=== PATIENT | female | born 1955 | race Two or more races ===

== ENCOUNTER → 2017-08-15 | Emergency (ER) | payer OTHER ==
[~2017-08-15] VITALS: Ht 165.1 cm; Wt 70.3 kg
[~2017-08-15] MED LIST: ASA81 MG; FLEXERIL10 MG PO; LIPITOR40 MG; NEURONTIN300 MG; NEXIUM20 MG/PACK; PREDNISONE5 MG/DOSE- PO; TENORMIN25 MG; TRAMADOL HCL50 MG PO
== END | disposition home or self-care (01) ==
LOC: ER 10:51
DX: N95.0 Postmenopausal bleeding (principal)

== ENCOUNTER 2017-09-10 11:00 | Outpatient (CLI) | payer OTHER | END 2017-09-10 15:01 | disposition home or self-care (01) | LOC: TOM 11:00 | DX: C54.1 Malignant neoplasm of endometrium (principal) | CPT/HCPCS: 74177; Q9965 ==

== ENCOUNTER → 2017-10-20 | Outpatient (CLI) | payer OTHER ==
[~2017-10-20] MED LIST changes: +TOPROL XL50 M1 PO
== END | disposition home or self-care (01) ==
LOC: LAB 06:39 → RAD 06:39
DX: I10 Essential (primary) hypertension (principal); E11.9 Type 2 diabetes mellitus without complications; E03.8 Other specified hypothyroidism; E78.2 Mixed hyperlipidemia; D68.8 Other specified coagulation defects; J44.0 Chronic obstructive pulmonary disease with (acute) lower respiratory infection

== ENCOUNTER 2017-11-25 12:45 | Emergency (ER) | payer OTHER ==
[~2017-11-25] VITALS: Ht 160 cm; Wt 68.9 kg
[~2017-11-25 12:45] MED LIST changes: -TOPROL XL50 M1 PO
[2017-11-25] MEDS ORDERED: TOPROL XL50 M1 PO (15:56)
== END 2017-11-25 16:32 | disposition home or self-care (01) ==
LOC: ER 12:45 → CPU-OBS 12:52 → ER 12:52
DX: I47.1 Supraventricular tachycardia (principal); R07.89 Other chest pain

== ENCOUNTER → 2017-11-26 11:30 | Outpatient (CLI) | payer OTHER ==
[~2017-11-26 11:30] MED LIST changes: +TOPROL XL50 M1 PO
== END | disposition home or self-care (01) ==
LOC: LAB 11:30
DX: N39.0 Urinary tract infection, site not specified (principal); R82.79 Other abnormal findings on microbiological examination of urine

== ENCOUNTER 2017-12-17 09:16 | Outpatient (CLI) | payer OTHER | END 2017-12-17 09:39 | disposition home or self-care (01) | LOC: RAD 501 09:16 | DX: M25.551 Pain in right hip (principal); M25.552 Pain in left hip ==

== ENCOUNTER 2018-01-19 07:37 | Outpatient (CLI) | payer OTHER | END 2018-01-19 17:00 | disposition home or self-care (01) | LOC: SONOGRAMA 07:37 | DX: C73 Malignant neoplasm of thyroid gland (principal) ==

== ENCOUNTER 2018-01-19 09:18 | Outpatient (CLI) | payer OTHER | END 2018-01-19 09:19 | disposition home or self-care (01) | LOC: LAB 09:18 | DX: I10 Essential (primary) hypertension (principal); E11.9 Type 2 diabetes mellitus without complications; E03.8 Other specified hypothyroidism; E78.2 Mixed hyperlipidemia; N39.0 Urinary tract infection, site not specified ==

== ENCOUNTER 2018-04-02 10:27 | Outpatient (CLI) | payer OTHER | END 2018-04-02 10:39 | disposition home or self-care (01) | LOC: RAD 501 10:27 | DX: M25.572 Pain in left ankle and joints of left foot (principal) ==

== ENCOUNTER 2018-04-16 13:41 | Outpatient (CLI) | payer OTHER | END 2018-04-16 13:51 | disposition home or self-care (01) | LOC: LAB 13:41 | DX: C54.1 Malignant neoplasm of endometrium (principal); C73 Malignant neoplasm of thyroid gland; D51.3 Other dietary vitamin B12 deficiency anemia; D50.8 Other iron deficiency anemias; K90.89 Other intestinal malabsorption; E53.9 Vitamin B deficiency, unspecified; E89.0 Postprocedural hypothyroidism; E78.2 Mixed hyperlipidemia; I10 Essential (primary) hypertension; R97.1 Elevated cancer antigen 125 [CA 125]; R97.0 Elevated carcinoembryonic antigen [CEA]; R97.8 Other abnormal tumor markers ==

== ENCOUNTER 2018-05-11 14:49 | Outpatient (CLI) | payer OTHER | END 2018-05-11 15:00 | disposition home or self-care (01) | LOC: LAB 14:49 | DX: C54.1 Malignant neoplasm of endometrium (principal); C73 Malignant neoplasm of thyroid gland; D51.3 Other dietary vitamin B12 deficiency anemia; D50.8 Other iron deficiency anemias; K90.89 Other intestinal malabsorption; E89.0 Postprocedural hypothyroidism; E78.2 Mixed hyperlipidemia; I10 Essential (primary) hypertension; R97.1 Elevated cancer antigen 125 [CA 125]; R97.0 Elevated carcinoembryonic antigen [CEA]; R97.8 Other abnormal tumor markers; C56.9 Malignant neoplasm of unspecified ovary ==

== ENCOUNTER 2018-06-03 13:00 | Inpatient (IN) | payer OTHER ==
[~2018-06-03] VITALS: Ht 165.1 cm; Wt 73.5 kg
[2018-06-05] MEDS ORDERED: DILTIAZEM HCL30 MG PO (10:34)
[2018-06-05] MEDS ORDERED: LEVOTHYROXINE112 MCG PO (10:34)
[2018-06-05] MEDS ORDERED: ELIQUIS5 MG PO (10:35)
== END 2018-06-05 12:19 | disposition home or self-care (01) | DRG 310 ==
LOC: ER 13:00 → SEC-K 18:38 → MEDI 19:21 → MEDJ 19:21
PROC: 4A12X4Z Monitoring of Cardiac Electrical Activity, External Approach (ICD-10-PCS; principal; 2018-06-03)
PROC: 4A033R1 Measurement of Arterial Saturation, Peripheral, Percutaneous Approach (ICD-10-PCS; 2018-06-03)
PROC: B246ZZZ Ultrasonography of Right and Left Heart (ICD-10-PCS; 2018-06-04)
DX: I48.0 Paroxysmal atrial fibrillation (principal); I47.1 Supraventricular tachycardia; E03.8 Other specified hypothyroidism; I11.9 Hypertensive heart disease without heart failure

== ENCOUNTER 2018-06-22 07:17 | Outpatient (CLI) | payer OTHER ==
[~2018-06-22 07:17] MED LIST changes: +DILTIAZEM HCL30 MG PO; +ELIQUIS5 MG PO; +LEVOTHYROXINE112 MCG PO
== END 2018-06-22 08:02 | disposition home or self-care (01) ==
LOC: LAB 07:17
DX: E04.0 Nontoxic diffuse goiter (principal); E78.2 Mixed hyperlipidemia; K76.1 Chronic passive congestion of liver; N39.0 Urinary tract infection, site not specified; D53.9 Nutritional anemia, unspecified; I11.0 Hypertensive heart disease with heart failure; E55.9 Vitamin D deficiency, unspecified

== ENCOUNTER 2018-06-22 08:39 | Inpatient (IN) | payer OTHER ==
[~2018-06-22] VITALS: Ht 165.1 cm; Wt 73.0 kg
[2018-07-22] MEDS ORDERED: SYNTHROID88 MCG PO (09:30)
[2018-07-22] MEDS ORDERED: EZETIMIBE10 MG PO (09:30)
[2018-07-22] MEDS ORDERED: INTEGRA CAPSUL1 EACH PO (09:31)
[2018-07-22] MEDS ORDERED: PROBIO PO (09:32)
[2018-07-22] MEDS ORDERED: [UNRECOGNIZED DRUG - OTHER] (09:32)
[2018-07-22] MEDS ORDERED: OSTERA TABLET1 EACH PO (09:32)
[2018-07-22] MEDS ORDERED: FLOVENT DISKUS50 MCG IH (09:33)
[2018-07-22] MEDS ORDERED: DILTI PO (09:33)
[2018-07-23] MEDS ORDERED: CARDIZEM30 MG PO (09:37)
[2018-07-23] MEDS ORDERED: PROBIOTIC1 EAC1 PO (09:38)
== END 2018-07-26 16:18 | disposition home or self-care (01) | DRG 740 ==
LOC: SURH 07-23 05:57 → O/R 07-23 05:57 → OB/GYN 07-23 08:15 → SURH 07-23 13:52
PROVIDERS: ADMIT Obstetrics & Gynecology Gynecologic Oncology
PROC: 0UT20ZZ Resection of Bilateral Ovaries, Open Approach (ICD-10-PCS; 2018-07-23)
PROC: 0UT70ZZ Resection of Bilateral Fallopian Tubes, Open Approach (ICD-10-PCS; principal; 2018-07-23 11:15)
DX: C54.1 Malignant neoplasm of endometrium (principal); I47.1 Supraventricular tachycardia; C79.89 Secondary malignant neoplasm of other specified sites; E03.9 Hypothyroidism, unspecified; I11.9 Hypertensive heart disease without heart failure; N95.0 Postmenopausal bleeding

== ENCOUNTER 2018-07-15 07:26 | Outpatient (CLI) | payer OTHER | END 2018-07-15 07:37 | disposition home or self-care (01) | LOC: LAB 07:26 | DX: G54.1 Lumbosacral plexus disorders (principal); R97.1 Elevated cancer antigen 125 [CA 125]; Z01.818 Encounter for other preprocedural examination; D64.89 Other specified anemias; R79.89 Other specified abnormal findings of blood chemistry; N39.0 Urinary tract infection, site not specified; Z01.810 Encounter for preprocedural cardiovascular examination; C73 Malignant neoplasm of thyroid gland; D51.3 Other dietary vitamin B12 deficiency anemia; D50.8 Other iron deficiency anemias; K90.89 Other intestinal malabsorption; E53.8 Deficiency of other specified B group vitamins; E89.0 Postprocedural hypothyroidism; E78.2 Mixed hyperlipidemia; I10 Essential (primary) hypertension; R97.0 Elevated carcinoembryonic antigen [CEA]; R97.8 Other abnormal tumor markers ==

== ENCOUNTER 2018-07-28 08:51 | Emergency (ER) | payer OTHER ==
[~2018-07-28] VITALS: Ht 165.1 cm; Wt 73.0 kg
[~2018-07-28 08:51] MED LIST changes: +CARDIZEM30 MG PO; +DILTI PO; +EZETIMIBE10 MG PO; +FLOVENT DISKUS50 MCG IH; +INTEGRA CAPSUL1 EACH PO; +OSTERA TABLET1 EACH PO; +PROBIO PO; +PROBIOTIC1 EAC1 PO; +SYNTHROID88 MCG PO; +[UNRECOGNIZED DRUG - OTHER]
[2018-07-28] MEDS ORDERED: LOVENOX40 MG/0.4 (09:29)
[2018-07-28] MEDS ORDERED: COLACE100 MG (09:29)
== END 2018-07-28 14:37 | disposition home or self-care (01) ==
LOC: ER 08:51
DX: G89.18 Other acute postprocedural pain (principal); R10.84 Generalized abdominal pain; K29.60 Other gastritis without bleeding

== ENCOUNTER 2018-08-13 18:03 | Emergency (ER) | payer OTHER ==
[~2018-08-13] VITALS: Ht 165.1 cm; Wt 72.6 kg
[~2018-08-13 18:03] MED LIST changes: +COLACE100 MG; +LOVENOX40 MG/0.4
== END 2018-08-14 00:20 | disposition home or self-care (01) ==
LOC: ER 18:03
DX: R00.2 Palpitations (principal)

== ENCOUNTER 2018-08-27 05:44 | Day surgery (SDC) | payer OTHER ==
[~2018-08-27 05:44] MED LIST changes: +GABAPENTIN600 MG PO; +LIPITOR20 MG PO; +METROPOLO PO; +ZETIA10 MG PO
== END 2018-08-27 15:40 | disposition home or self-care (01) ==
LOC: CIR.AMB 05:44
DX: C54.1 Malignant neoplasm of endometrium (principal); C77.5 Secondary and unspecified malignant neoplasm of intrapelvic lymph nodes
CPT/HCPCS: 36561; C1751

== ENCOUNTER 2018-09-16 12:12 | Outpatient (CLI) | payer OTHER | END 2018-09-16 12:25 | disposition home or self-care (01) | LOC: LAB 12:12 | DX: N39.0 Urinary tract infection, site not specified (principal); B99.8 Other infectious disease ==

== ENCOUNTER 2018-10-10 07:38 | Outpatient (CLI) | payer OTHER | END 2018-10-10 07:52 | disposition home or self-care (01) | LOC: LAB 07:38 | DX: C54.1 Malignant neoplasm of endometrium (principal); C78.6 Secondary malignant neoplasm of retroperitoneum and peritoneum; Z80.0 Family history of malignant neoplasm of digestive organs; Z80.3 Family history of malignant neoplasm of breast; C73 Malignant neoplasm of thyroid gland; D51.3 Other dietary vitamin B12 deficiency anemia; D50.8 Other iron deficiency anemias; K90.89 Other intestinal malabsorption; E53.8 Deficiency of other specified B group vitamins; E89.0 Postprocedural hypothyroidism; E78.2 Mixed hyperlipidemia; I10 Essential (primary) hypertension; R97.1 Elevated cancer antigen 125 [CA 125]; R97.0 Elevated carcinoembryonic antigen [CEA]; R97.8 Other abnormal tumor markers ==

== ENCOUNTER 2018-10-14 14:28 | Outpatient (CLI) | payer OTHER | END 2018-10-14 15:36 | disposition home or self-care (01) | LOC: LAB 14:28 | DX: C54.1 Malignant neoplasm of endometrium (principal); Z80.0 Family history of malignant neoplasm of digestive organs; Z80.3 Family history of malignant neoplasm of breast; C78.6 Secondary malignant neoplasm of retroperitoneum and peritoneum; C73 Malignant neoplasm of thyroid gland; D50.8 Other iron deficiency anemias; K90.89 Other intestinal malabsorption; E53.8 Deficiency of other specified B group vitamins; E89.0 Postprocedural hypothyroidism; E78.2 Mixed hyperlipidemia; I10 Essential (primary) hypertension; R97.0 Elevated carcinoembryonic antigen [CEA]; R97.8 Other abnormal tumor markers ==

== ENCOUNTER 2018-10-31 07:57 | Outpatient (CLI) | payer OTHER ==
[~2018-10-31 07:57] MED LIST changes: +B-12500 MCG PO; +INTEGRA F CAPS1 EACH PO; +TENORMIN25 MG PO; +VIT C-ROSE HIP500 MG PO; +VITAMIN D3400 UNI1 PO
== END 2018-10-31 08:04 | disposition home or self-care (01) ==
LOC: LAB 07:57
DX: E04.0 Nontoxic diffuse goiter (principal); C54.1 Malignant neoplasm of endometrium; C78.6 Secondary malignant neoplasm of retroperitoneum and peritoneum; I10 Essential (primary) hypertension

== ENCOUNTER 2018-11-09 07:32 | Outpatient (CLI) | payer OTHER | END 2018-11-09 08:30 | disposition home or self-care (01) | LOC: LAB 07:32 | DX: C54.1 Malignant neoplasm of endometrium (principal) ==

== ENCOUNTER 2018-11-12 07:52 | Outpatient (CLI) | payer OTHER | END 2018-11-12 07:57 | disposition home or self-care (01) | LOC: LAB 07:52 | DX: E78.49 Other hyperlipidemia (principal); C54.1 Malignant neoplasm of endometrium; C78.6 Secondary malignant neoplasm of retroperitoneum and peritoneum ==

== ENCOUNTER 2018-11-23 06:53 | Outpatient (CLI) | payer OTHER | END 2018-11-23 07:29 | disposition home or self-care (01) | LOC: LAB 06:53 | DX: E04.0 Nontoxic diffuse goiter (principal); C73 Malignant neoplasm of thyroid gland; I11.0 Hypertensive heart disease with heart failure ==

== ENCOUNTER 2018-11-23 07:41 | Outpatient (CLI) | payer OTHER | END 2018-11-23 17:00 | disposition home or self-care (01) | LOC: SONOGRAMA 07:41 | DX: C73 Malignant neoplasm of thyroid gland (principal); E89.0 Postprocedural hypothyroidism ==

== ENCOUNTER 2018-11-28 17:13 | Emergency (ER) | payer OTHER ==
[~2018-11-28] VITALS: Ht 165.1 cm; Wt 65.8 kg
[2018-11-28] MEDS ORDERED: METOPROLOL SUCC25 MG (17:30)
[2018-11-28] MEDS ORDERED: SKELAXIN800 MG PO (20:20)
[2018-11-28] MEDS ORDERED: VOLTAREN100 GM TOP (20:20)
== END 2018-11-28 20:47 | disposition home or self-care (01) ==
LOC: ER 17:13
DX: M75.51 Bursitis of right shoulder (principal); M25.511 Pain in right shoulder

== ENCOUNTER 2018-12-03 06:58 | Outpatient (CLI) | payer OTHER ==
[~2018-12-03 06:58] MED LIST changes: +METOPROLOL SUCC25 MG; +SKELAXIN800 MG PO; +VOLTAREN100 GM TOP
== END 2018-12-03 08:06 | disposition home or self-care (01) ==
LOC: LAB 06:58
DX: C54.1 Malignant neoplasm of endometrium (principal)

== ENCOUNTER → 2018-12-10 07:29 | Outpatient (CLI) | payer OTHER | END | disposition home or self-care (01) | LOC: LAB 07:29 | DX: D51.8 Other vitamin B12 deficiency anemias (principal); D50.8 Other iron deficiency anemias ==

== ENCOUNTER 2018-12-16 15:42 | Outpatient (CLI) | payer OTHER | END 2018-12-16 15:49 | disposition home or self-care (01) | LOC: LAB 15:42 | DX: N39.0 Urinary tract infection, site not specified (principal); B96.29 Other Escherichia coli [E. coli] as the cause of diseases classified elsewhere; Z80.0 Family history of malignant neoplasm of digestive organs; Z80.3 Family history of malignant neoplasm of breast; C54.1 Malignant neoplasm of endometrium; C78.6 Secondary malignant neoplasm of retroperitoneum and peritoneum; C73 Malignant neoplasm of thyroid gland; D51.3 Other dietary vitamin B12 deficiency anemia; D50.8 Other iron deficiency anemias; E89.0 Postprocedural hypothyroidism; K90.89 Other intestinal malabsorption; E78.2 Mixed hyperlipidemia; I10 Essential (primary) hypertension; R97.1 Elevated cancer antigen 125 [CA 125]; R97.0 Elevated carcinoembryonic antigen [CEA]; R97.8 Other abnormal tumor markers; D51.8 Other vitamin B12 deficiency anemias ==

== ENCOUNTER → 2018-12-28 07:20 | Outpatient (CLI) | payer OTHER | END | disposition home or self-care (01) | LOC: LAB 07:20 | DX: C73 Malignant neoplasm of thyroid gland (principal); N39.0 Urinary tract infection, site not specified; I10 Essential (primary) hypertension; D50.8 Other iron deficiency anemias; Z80.0 Family history of malignant neoplasm of digestive organs; Z80.3 Family history of malignant neoplasm of breast; C54.1 Malignant neoplasm of endometrium; C78.6 Secondary malignant neoplasm of retroperitoneum and peritoneum; D51.3 Other dietary vitamin B12 deficiency anemia; K90.89 Other intestinal malabsorption; E89.0 Postprocedural hypothyroidism; E78.2 Mixed hyperlipidemia; R97.1 Elevated cancer antigen 125 [CA 125]; R97.0 Elevated carcinoembryonic antigen [CEA]; R97.8 Other abnormal tumor markers; I11.9 Hypertensive heart disease without heart failure ==

== ENCOUNTER 2019-01-04 07:05 | Outpatient (CLI) | payer OTHER | END 2019-01-04 07:10 | disposition home or self-care (01) | LOC: LAB 07:05 | DX: C54.1 Malignant neoplasm of endometrium (principal); C78.6 Secondary malignant neoplasm of retroperitoneum and peritoneum ==

== ENCOUNTER 2019-01-18 07:40 | Outpatient (CLI) | payer OTHER | END 2019-01-18 07:47 | disposition home or self-care (01) | LOC: LAB 07:40 | DX: C73 Malignant neoplasm of thyroid gland (principal); C54.1 Malignant neoplasm of endometrium; C78.6 Secondary malignant neoplasm of retroperitoneum and peritoneum; I11.9 Hypertensive heart disease without heart failure; E78.2 Mixed hyperlipidemia ==

== ENCOUNTER → 2019-02-12 07:29 | Outpatient (CLI) | payer OTHER | END | disposition home or self-care (01) | LOC: LAB 07:29 | DX: D70.1 Agranulocytosis secondary to cancer chemotherapy (principal); D64.81 Anemia due to antineoplastic chemotherapy; C54.1 Malignant neoplasm of endometrium; E04.8 Other specified nontoxic goiter ==

== ENCOUNTER 2019-03-05 08:23 | Outpatient (CLI) | payer OTHER | END 2019-03-05 08:31 | disposition home or self-care (01) | LOC: LAB 08:23 | DX: E04.8 Other specified nontoxic goiter (principal); C78.6 Secondary malignant neoplasm of retroperitoneum and peritoneum; D63.0 Anemia in neoplastic disease; D64.81 Anemia due to antineoplastic chemotherapy ==

== ENCOUNTER 2019-03-22 07:18 | Outpatient (CLI) | payer OTHER | END 2019-03-22 07:24 | disposition home or self-care (01) | LOC: LAB 07:18 | DX: C54.1 Malignant neoplasm of endometrium (principal); Z80.0 Family history of malignant neoplasm of digestive organs; Z80.3 Family history of malignant neoplasm of breast; C78.6 Secondary malignant neoplasm of retroperitoneum and peritoneum; C73 Malignant neoplasm of thyroid gland; D51.3 Other dietary vitamin B12 deficiency anemia; D50.8 Other iron deficiency anemias; K90.89 Other intestinal malabsorption; E89.0 Postprocedural hypothyroidism; E78.2 Mixed hyperlipidemia; I10 Essential (primary) hypertension; R97.1 Elevated cancer antigen 125 [CA 125]; R97.0 Elevated carcinoembryonic antigen [CEA]; R97.8 Other abnormal tumor markers; D63.0 Anemia in neoplastic disease; D70.1 Agranulocytosis secondary to cancer chemotherapy; D64.81 Anemia due to antineoplastic chemotherapy; D51.8 Other vitamin B12 deficiency anemias ==

== ENCOUNTER 2019-04-29 12:21 | Outpatient (CLI) | payer OTHER | END 2019-04-29 12:25 | disposition home or self-care (01) | LOC: LAB 12:21 | DX: C54.1 Malignant neoplasm of endometrium (principal) ==

== ENCOUNTER 2019-05-11 08:44 | Outpatient (CLI) | payer OTHER | END 2019-05-11 09:00 | disposition home or self-care (01) | LOC: LAB 08:44 | DX: D50.8 Other iron deficiency anemias (principal); I10 Essential (primary) hypertension; E78.2 Mixed hyperlipidemia; C78.6 Secondary malignant neoplasm of retroperitoneum and peritoneum; Z80.0 Family history of malignant neoplasm of digestive organs; Z80.3 Family history of malignant neoplasm of breast; D51.3 Other dietary vitamin B12 deficiency anemia; K90.89 Other intestinal malabsorption; R97.1 Elevated cancer antigen 125 [CA 125]; D70.1 Agranulocytosis secondary to cancer chemotherapy; C54.1 Malignant neoplasm of endometrium; C73 Malignant neoplasm of thyroid gland; R97.0 Elevated carcinoembryonic antigen [CEA]; D64.81 Anemia due to antineoplastic chemotherapy; E03.8 Other specified hypothyroidism; R97.8 Other abnormal tumor markers; E06.3 Autoimmune thyroiditis; D63.0 Anemia in neoplastic disease; D51.8 Other vitamin B12 deficiency anemias; A53.9 Syphilis, unspecified ==

== ENCOUNTER → 2019-05-12 | Outpatient (CLI) | payer OTHER | END | disposition home or self-care (01) | LOC: TOM 07:32 | DX: C73 Malignant neoplasm of thyroid gland (principal); K90.89 Other intestinal malabsorption; R97.1 Elevated cancer antigen 125 [CA 125]; D70.1 Agranulocytosis secondary to cancer chemotherapy; D51.3 Other dietary vitamin B12 deficiency anemia; E89.0 Postprocedural hypothyroidism; R97.0 Elevated carcinoembryonic antigen [CEA]; D64.81 Anemia due to antineoplastic chemotherapy; Z80.0 Family history of malignant neoplasm of digestive organs; Z80.3 Family history of malignant neoplasm of breast; D50.8 Other iron deficiency anemias; E78.2 Mixed hyperlipidemia; R97.8 Other abnormal tumor markers; C54.1 Malignant neoplasm of endometrium; I10 Essential (primary) hypertension; D63.0 Anemia in neoplastic disease; C78.6 Secondary malignant neoplasm of retroperitoneum and peritoneum | CPT/HCPCS: 71260; 74177; Q9965 ==

== ENCOUNTER 2019-05-31 07:16 | Outpatient (CLI) | payer OTHER | END 2019-05-31 07:21 | disposition home or self-care (01) | LOC: LAB 07:16 | DX: C54.1 Malignant neoplasm of endometrium (principal); Z80.0 Family history of malignant neoplasm of digestive organs; Z80.3 Family history of malignant neoplasm of breast; C78.6 Secondary malignant neoplasm of retroperitoneum and peritoneum; C73 Malignant neoplasm of thyroid gland; D51.3 Other dietary vitamin B12 deficiency anemia; D50.8 Other iron deficiency anemias; K90.89 Other intestinal malabsorption; E89.0 Postprocedural hypothyroidism; E78.2 Mixed hyperlipidemia; I10 Essential (primary) hypertension; R97.1 Elevated cancer antigen 125 [CA 125]; R97.0 Elevated carcinoembryonic antigen [CEA]; R97.8 Other abnormal tumor markers; D63.0 Anemia in neoplastic disease; D70.1 Agranulocytosis secondary to cancer chemotherapy; D64.81 Anemia due to antineoplastic chemotherapy ==

== ENCOUNTER → 2019-06-02 | Outpatient (CLI) | payer OTHER ==
[~2019-06-02] MED LIST changes: +SYNTHROID100 MCG PO; +TOPROL XL25 M1 PO
== END | disposition home or self-care (01) ==
LOC: EDBD 13:03 → RX STUDY 13:03
DX: C54.1 Malignant neoplasm of endometrium (principal)

== ENCOUNTER 2019-06-14 08:45 | Outpatient (CLI) | payer OTHER ==
[~2019-06-14 08:45] MED LIST changes: -SYNTHROID100 MCG PO; -TOPROL XL25 M1 PO
== END 2019-06-14 08:50 | disposition home or self-care (01) ==
LOC: LAB 08:45
DX: D68.8 Other specified coagulation defects (principal); E11.9 Type 2 diabetes mellitus without complications; N39.0 Urinary tract infection, site not specified; E78.2 Mixed hyperlipidemia; E89.0 Postprocedural hypothyroidism

== ENCOUNTER 2019-06-15 08:03 | Outpatient (CLI) | payer OTHER | END 2019-06-15 08:18 | disposition home or self-care (01) | LOC: RAD 08:03 → TOM 09:00 | DX: C73 Malignant neoplasm of thyroid gland (principal); M87.88 Other osteonecrosis, other site; M25.551 Pain in right hip | CPT/HCPCS: 73722 ==

== ENCOUNTER → 2019-06-17 | Outpatient (CLI) | payer OTHER ==
[~2019-06-17] MED LIST changes: +SYNTHROID100 MCG PO; +TOPROL XL25 M1 PO
== END | disposition home or self-care (01) ==
LOC: EDBD 08:45 → MRI 08:45
DX: M25.551 Pain in right hip (principal)
CPT/HCPCS: 73721; 73722

== ENCOUNTER 2019-06-21 13:15 | Outpatient (CLI) | payer OTHER ==
[~2019-06-21 13:15] MED LIST changes: -SYNTHROID100 MCG PO; -TOPROL XL25 M1 PO
== END 2019-06-21 13:18 | disposition home or self-care (01) ==
LOC: RAD 13:15
DX: M16.11 Unilateral primary osteoarthritis, right hip (principal)

== ENCOUNTER → 2019-06-26 08:43 | Outpatient (CLI) | payer OTHER | END | disposition home or self-care (01) | LOC: LAB 08:43 | DX: C54.1 Malignant neoplasm of endometrium (principal); Z80.0 Family history of malignant neoplasm of digestive organs; Z80.3 Family history of malignant neoplasm of breast; C78.6 Secondary malignant neoplasm of retroperitoneum and peritoneum; C73 Malignant neoplasm of thyroid gland; D51.3 Other dietary vitamin B12 deficiency anemia; D50.8 Other iron deficiency anemias; K90.89 Other intestinal malabsorption; E89.0 Postprocedural hypothyroidism; E78.2 Mixed hyperlipidemia; I10 Essential (primary) hypertension; R97.1 Elevated cancer antigen 125 [CA 125]; R97.0 Elevated carcinoembryonic antigen [CEA]; R97.8 Other abnormal tumor markers; D63.0 Anemia in neoplastic disease; D70.1 Agranulocytosis secondary to cancer chemotherapy; D64.81 Anemia due to antineoplastic chemotherapy; T82.598A Other mechanical complication of other cardiac and vascular devices and implants, initial encounter; Z01.811 Encounter for preprocedural respiratory examination ==

== ENCOUNTER → 2019-06-30 | Outpatient (CLI) | payer OTHER | END | disposition home or self-care (01) | LOC: EDBD 13:14 → MAMO-SONO 13:14 | DX: Z12.31 Encounter for screening mammogram for malignant neoplasm of breast (principal); Z87.898 Personal history of other specified conditions; C54.1 Malignant neoplasm of endometrium; Z80.0 Family history of malignant neoplasm of digestive organs; Z80.3 Family history of malignant neoplasm of breast; C78.6 Secondary malignant neoplasm of retroperitoneum and peritoneum; C73 Malignant neoplasm of thyroid gland; D51.3 Other dietary vitamin B12 deficiency anemia; D50.8 Other iron deficiency anemias; K90.89 Other intestinal malabsorption; R89.0 Abnormal level of enzymes in specimens from other organs, systems and tissues; E78.2 Mixed hyperlipidemia; I10 Essential (primary) hypertension; R97.1 Elevated cancer antigen 125 [CA 125]; R97.0 Elevated carcinoembryonic antigen [CEA]; R97.8 Other abnormal tumor markers; D63.0 Anemia in neoplastic disease; D70.1 Agranulocytosis secondary to cancer chemotherapy; D64.81 Anemia due to antineoplastic chemotherapy ==

== ENCOUNTER 2019-07-05 07:37 | Outpatient (CLI) | payer OTHER | END 2019-07-05 13:30 | disposition home or self-care (01) | LOC: MRI 07:37 → EDBD 07:37 → MRI 13:30 | DX: C54.1 Malignant neoplasm of endometrium (principal); Z80.0 Family history of malignant neoplasm of digestive organs; Z80.3 Family history of malignant neoplasm of breast; C78.6 Secondary malignant neoplasm of retroperitoneum and peritoneum; C73 Malignant neoplasm of thyroid gland; D51.3 Other dietary vitamin B12 deficiency anemia; D50.8 Other iron deficiency anemias; K90.89 Other intestinal malabsorption; E89.0 Postprocedural hypothyroidism; E78.2 Mixed hyperlipidemia; I10 Essential (primary) hypertension; R97.1 Elevated cancer antigen 125 [CA 125]; R97.0 Elevated carcinoembryonic antigen [CEA]; R97.8 Other abnormal tumor markers; D63.0 Anemia in neoplastic disease; D70.1 Agranulocytosis secondary to cancer chemotherapy; D64.81 Anemia due to antineoplastic chemotherapy | CPT/HCPCS: 72197; A9575 ==

== ENCOUNTER 2019-07-05 10:45 | Outpatient (CLI) | payer OTHER | END 2019-07-05 14:23 | disposition home or self-care (01) | LOC: EKG 10:45 | DX: I10 Essential (primary) hypertension (principal) ==

== ENCOUNTER 2019-07-12 07:51 | Outpatient (CLI) | payer OTHER | END 2019-07-12 15:07 | disposition home or self-care (01) | LOC: LAB 07:51 | DX: D68.8 Other specified coagulation defects (principal); C54.1 Malignant neoplasm of endometrium; T82.598A Other mechanical complication of other cardiac and vascular devices and implants, initial encounter; Z01.812 Encounter for preprocedural laboratory examination ==

== ENCOUNTER 2019-07-16 09:59 | Emergency (ER) | payer OTHER ==
[~2019-07-16] VITALS: Ht 160 cm; Wt 65.8 kg
[~2019-07-16 09:59] MED LIST changes: +SYNTHROID100 MCG PO
[2019-07-16] MEDS ORDERED: TOPROL XL25 M1 PO (10:19)
== END 2019-07-16 14:51 | disposition home or self-care (01) ==
LOC: ER 09:59 → CPU-OBS 11:25 → ER 11:25
DX: I47.1 Supraventricular tachycardia (principal)

== ENCOUNTER 2019-07-22 06:10 | Day surgery (SDC) | payer OTHER ==
[~2019-07-22 06:10] MED LIST changes: +TOPROL XL25 M1 PO
== END 2019-07-22 15:05 | disposition home or self-care (01) ==
LOC: CIR.AMB 06:10
DX: T82.598A Other mechanical complication of other cardiac and vascular devices and implants, initial encounter (principal); C54.1 Malignant neoplasm of endometrium
CPT/HCPCS: 36561; 36590; C1751

== ENCOUNTER → 2019-07-28 | Outpatient (CLI) | payer OTHER ==
[~2019-07-28] MED LIST changes: +DILTIAZEM ER300 M2; +VENTOLIN HFA18 GM
== END | disposition home or self-care (01) ==
LOC: RAD 10:47
DX: R07.89 Other chest pain (principal); C54.1 Malignant neoplasm of endometrium; C77.5 Secondary and unspecified malignant neoplasm of intrapelvic lymph nodes

== ENCOUNTER → 2019-07-31 09:02 | Outpatient (CLI) | payer OTHER | END | disposition home or self-care (01) | LOC: LAB 09:02 | DX: E04.8 Other specified nontoxic goiter (principal); D50.8 Other iron deficiency anemias; I10 Essential (primary) hypertension ==

== ENCOUNTER 2019-07-31 15:36 | Emergency (ER) | payer OTHER ==
[~2019-07-31] VITALS: Ht 165.1 cm; Wt 65.8 kg
[~2019-07-31 15:36] MED LIST changes: -DILTIAZEM ER300 M2; -VENTOLIN HFA18 GM
[2019-07-31] MEDS ORDERED: DILTIAZEM ER300 M2 (15:51)
[2019-07-31] MEDS ORDERED: VENTOLIN HFA18 GM (15:52)
== END 2019-08-01 00:03 | disposition home or self-care (01) ==
LOC: ER 15:36 → CPU-OBS 15:43 → ER 15:43
DX: R07.89 Other chest pain (principal); I48.91 Unspecified atrial fibrillation; R00.0 Tachycardia, unspecified

== ENCOUNTER 2019-08-14 08:23 | Outpatient (CLI) | payer OTHER ==
[~2019-08-14 08:23] MED LIST changes: +DILTIAZEM ER300 M2; +VENTOLIN HFA18 GM
== END 2019-08-14 08:30 | disposition home or self-care (01) ==
LOC: LAB 08:23
DX: C73 Malignant neoplasm of thyroid gland (principal); E89.0 Postprocedural hypothyroidism; D50.8 Other iron deficiency anemias; I10 Essential (primary) hypertension; Z80.0 Family history of malignant neoplasm of digestive organs; Z80.3 Family history of malignant neoplasm of breast; C54.1 Malignant neoplasm of endometrium; C78.6 Secondary malignant neoplasm of retroperitoneum and peritoneum; K90.89 Other intestinal malabsorption; E78.2 Mixed hyperlipidemia; R97.1 Elevated cancer antigen 125 [CA 125]; R97.0 Elevated carcinoembryonic antigen [CEA]; R97.8 Other abnormal tumor markers; D63.0 Anemia in neoplastic disease; D70.1 Agranulocytosis secondary to cancer chemotherapy; D64.81 Anemia due to antineoplastic chemotherapy; D51.8 Other vitamin B12 deficiency anemias

== ENCOUNTER 2019-09-11 10:24 | Emergency (ER) | payer OTHER ==
[~2019-09-11] VITALS: Ht 165.1 cm; Wt 63.5 kg
== END 2019-09-11 14:35 | disposition home or self-care (01) ==
LOC: ER 10:24
DX: M70.51 Other bursitis of knee, right knee (principal); M25.561 Pain in right knee

== ENCOUNTER 2019-09-14 08:53 | Outpatient (CLI) | payer OTHER | END 2019-09-14 09:02 | disposition home or self-care (01) | LOC: LAB 08:53 | DX: D50.8 Other iron deficiency anemias (principal); I10 Essential (primary) hypertension; D68.8 Other specified coagulation defects; C56.9 Malignant neoplasm of unspecified ovary; R97.8 Other abnormal tumor markers; R97.1 Elevated cancer antigen 125 [CA 125]; N39.0 Urinary tract infection, site not specified; Z80.0 Family history of malignant neoplasm of digestive organs; Z80.3 Family history of malignant neoplasm of breast; C78.6 Secondary malignant neoplasm of retroperitoneum and peritoneum; C73 Malignant neoplasm of thyroid gland; D51.3 Other dietary vitamin B12 deficiency anemia; K90.89 Other intestinal malabsorption; E78.2 Mixed hyperlipidemia; E89.0 Postprocedural hypothyroidism; R97.0 Elevated carcinoembryonic antigen [CEA]; D63.0 Anemia in neoplastic disease; D70.1 Agranulocytosis secondary to cancer chemotherapy; D64.81 Anemia due to antineoplastic chemotherapy ==

== ENCOUNTER 2019-09-27 07:31 | Outpatient (CLI) | payer OTHER | END 2019-09-27 07:39 | disposition home or self-care (01) | LOC: LAB 07:31 | DX: E04.8 Other specified nontoxic goiter (principal); D50.1 Sideropenic dysphagia ==

== ENCOUNTER 2019-10-26 07:03 | Outpatient (CLI) | payer OTHER | END 2019-10-26 07:09 | disposition home or self-care (01) | LOC: LAB 07:03 | DX: D50.8 Other iron deficiency anemias (principal); I10 Essential (primary) hypertension; R97.8 Other abnormal tumor markers; Z80.0 Family history of malignant neoplasm of digestive organs; Z80.3 Family history of malignant neoplasm of breast; C54.1 Malignant neoplasm of endometrium; C78.6 Secondary malignant neoplasm of retroperitoneum and peritoneum; C73 Malignant neoplasm of thyroid gland; D51.3 Other dietary vitamin B12 deficiency anemia; K90.89 Other intestinal malabsorption; E89.0 Postprocedural hypothyroidism; E78.2 Mixed hyperlipidemia; D63.0 Anemia in neoplastic disease; D70.1 Agranulocytosis secondary to cancer chemotherapy; D64.81 Anemia due to antineoplastic chemotherapy ==

== ENCOUNTER 2019-11-12 23:17 | Emergency (ER) | payer OTHER ==
[~2019-11-12] VITALS: Ht 165.1 cm; Wt 54.4 kg
== END 2019-11-13 01:59 | disposition home or self-care (01) ==
LOC: ER 23:17
DX: R00.2 Palpitations (principal)

== ENCOUNTER → 2019-11-15 07:24 | Outpatient (CLI) | payer OTHER | END | disposition home or self-care (01) | LOC: LAB 07:24 | DX: D50.8 Other iron deficiency anemias (principal); I10 Essential (primary) hypertension; C56.9 Malignant neoplasm of unspecified ovary; R97.8 Other abnormal tumor markers; R97.1 Elevated cancer antigen 125 [CA 125]; R97.0 Elevated carcinoembryonic antigen [CEA]; Z80.0 Family history of malignant neoplasm of digestive organs; Z80.3 Family history of malignant neoplasm of breast; C54.1 Malignant neoplasm of endometrium; C78.6 Secondary malignant neoplasm of retroperitoneum and peritoneum; C73 Malignant neoplasm of thyroid gland; K90.89 Other intestinal malabsorption; E89.0 Postprocedural hypothyroidism; E78.2 Mixed hyperlipidemia; D63.0 Anemia in neoplastic disease; D70.1 Agranulocytosis secondary to cancer chemotherapy; D64.81 Anemia due to antineoplastic chemotherapy; N39.0 Urinary tract infection, site not specified; M06.1 Adult-onset Still's disease; E55.9 Vitamin D deficiency, unspecified; D53.8 Other specified nutritional anemias; E53.8 Deficiency of other specified B group vitamins ==

== ENCOUNTER → 2019-12-07 07:02 | Outpatient (CLI) | payer OTHER | END | disposition home or self-care (01) | LOC: LAB 07:02 | DX: D50.8 Other iron deficiency anemias (principal); I10 Essential (primary) hypertension; C56.9 Malignant neoplasm of unspecified ovary; R97.8 Other abnormal tumor markers; R97.1 Elevated cancer antigen 125 [CA 125]; Z80.0 Family history of malignant neoplasm of digestive organs; Z80.3 Family history of malignant neoplasm of breast; C54.1 Malignant neoplasm of endometrium; C78.6 Secondary malignant neoplasm of retroperitoneum and peritoneum; C78.02 Secondary malignant neoplasm of left lung; C73 Malignant neoplasm of thyroid gland; D51.3 Other dietary vitamin B12 deficiency anemia; K90.89 Other intestinal malabsorption; E89.0 Postprocedural hypothyroidism; E78.2 Mixed hyperlipidemia; R97.0 Elevated carcinoembryonic antigen [CEA]; D63.0 Anemia in neoplastic disease; D70.1 Agranulocytosis secondary to cancer chemotherapy; D64.81 Anemia due to antineoplastic chemotherapy; N39.0 Urinary tract infection, site not specified ==